=== PATIENT | female | born 1940 | race Caucasian/White ===

== ENCOUNTER → 2018-02-03 | Outpatient (CLI) | payer OTHER ==
[~2018-02-03] MED LIST: ACIDOPHILUS1 EAC4 PO; AMARYL1 MG PO; ASPIR 8181 MG PO; BISOPROLOL FUMAR5 MG PO; CARVEDILOL12.5 MG PO; CIPRO500 MG PO; FLAGYL500 M1 PO; FLAGYL500 MG PO; LISINOPRIL20 MG PO; LIVALO2 MG PO; LOPRESSOR25 PO; MELATONIN5 M1 PO; METFORMIN HCL500 MG PO; MIRALAX17 GM PO; MS CONTIN15 MG PO; NORVASC10 MG PO; ONDANSETRON HCL4 M2 PO; PHENERGAN 25 MG25 M1 PO; ZOFRAN 4 MG ORAL4 M1 DIS
== END ==
LOC: M.ULTRA 01-25 13:16
DX: K86.3 Pseudocyst of pancreas (principal); N85.9 Noninflammatory disorder of uterus, unspecified

== ENCOUNTER 2018-08-12 02:11 | Inpatient (IN) | payer OTHER ==
[~2018-08-12] VITALS: Ht 142.2 cm; Wt 65.8 kg
[2018-08-12] VITALS (7 sets, daily range): BP systolic 122–170; BP diastolic 57–70
[~2018-08-12 02:11] MED LIST changes: -ACIDOPHILUS1 EAC4 PO; -CIPRO500 MG PO; -FLAGYL500 M1 PO; -MELATONIN5 M1 PO
[2018-08-12 02:26] LABS: URINE BILIRUBIN NEGATIVE (Negative); URINE BLOOD TRACE (Negative); URINE CLARITY CLEAR; URINE COLOR YELLOW; URINE GLUCOSE-RANDOM NEGATIVE (Negative); URINE KETONES NEGATIVE (Negative); URINE LEUKOCYTES-REFLEX 3+ (Negative); URINE NITRITE-REFLEX NEGATIVE (Negative); URINE PROTEIN NEGATIVE (Negative); URINE SPECIFIC GRAVITY <= 1.005 (1.005-1.030); URINE UROBILINOGEN 0.2 E.U./dl (0.2-1.0)
[2018-08-12 02:28] LABS: ABSOLUTE BASOPHILS 0.1 thou/uL (0.0-0.2); ABSOLUTE EOSINOPHILS 0.2 thou/uL (0.0-0.7); ABSOLUTE LYMPHOCYTES 1.3 thou/uL (0.8-5.3); ABSOLUTE NEUTROPHILS 8.1 thou/uL (1.6-8.1); BASOPHILS 0.5 %; EOSINOPHILS 2.2 %; HEMATOCRIT 43.3 % (37.0-47.0); HEMOGLOBIN 14.6 gm/dL (12.0-15.0); LYMPHOCYTES 12.5 %; MCH 28.8 pg (26.0-34.0); MCHC 33.7 g/dL (28.0-37.0); MCV 85.6 fL (80.0-100.0); MONOCYTES 9.3 %; MPV 7.6 fl. (7.2-11.1); NUCLEATED RBCS 0 /100WBC; PLATELET COUNT* 308 thou/uL (150-400); POLYS 75.5 %; RBC 5.06 mil/uL (4.20-5.00); RDW-CV 13.6 % (10.5-14.5); WBC 10.7 thou/uL (4.0-11.0)
[2018-08-12 02:32] LABS: BACTERIA-REFLEX >30 Many /HPF (None Seen); CASTS None Seen /LPF (None Seen); CRYSTALS None Seen /LPF (None Seen); MUCUS 0-3 Light strn/LPF (None Seen); RENAL EPITHELIAL CELLS 0-3 Few /LPF (None Seen); SQUAMOUS 4-10 Moderate /LPF (0-3); TRANSITIONAL EPITHEL CELL 0-3 Few /LPF (None Seen); URINE RBC 3-10 Few /HPF (0-2); URINE WBC-REFLEX >25 Many /HPF (0-5); WBC CLUMPS Few (None Seen)
[2018-08-12 02:37] LABS: ANION GAP 9 mmol/L (7-16); BUN 19 mg/dL (7-18); CALCIUM 8.9 mg/dL (8.5-10.1); CHLORIDE 103 mmol/L (98-107); CO2 27 mmol/L (21-32); CREATININE 0.8 mg/dL (0.6-1.3); GLUCOSE 123 mg/dL (70-99); POTASSIUM 3.9 mmol/L (3.5-5.1); SODIUM 139 mmol/L (136-145)
[2018-08-12 02:40] LABS: PROTIME 9.8 Seconds (9.20-11.50)
[2018-08-12 02:57] LABS: ALBUMIN 3.9 g/dL (3.4-5.0); ALKALINE PHOSPHATASE 102 U/L (46-116); LIPASE 345 U/L (73-393); SGOT 13 U/L (15-37); SGPT 18 U/L (30-65); TOTAL BILIRUBIN 0.4 mg/dL (<0.1-1.0); TOTAL PROTEIN 7.7 g/dL (6.4-8.2)
[2018-08-12 02:58] LABS: NT-PRO BRAIN NAT PEPTIDE 102 pg/mL (<300); TROPONIN-I LEVEL <0.06 ng/mL (<0.06)
[2018-08-12] MEDS ORDERED: MIRALAX17 GM PO (06:20)
--- NOTE | 2018-08-12 16:32 | NUR ---
SW met with pt to complete initial assessment, introduce self, and SW role. Pt lives at home with her and has family support. Pt has a hx of HH and a hx of SNF at [facility]. Pt did not express any known dc needs at this time. SW to continue to follow to assist with safe dc planning.
--- NOTE | 2018-08-12 16:42 | EKG ---
[place] [address] ELECTROCARDIOGRAM REPORT Name: ISABELDEVENDRA Andre Room: [address] ADM IN M.R.#: [id number] Admission: 08/12/18 Attend Phys: Pedro Luis Tamayo MD Discharge: Date of : 42 Report #: [id number] THIS REPORT FOR: //name// [facility] ED Test Date: 2018-08-12 Test Time: 02:26:54 Pat Name: DEVENDRA HALL Department: Room: [facility] Gender: F Receptionist/Telephone Operator: AP : 1940 Requested By: Lynda Saab Order Number: [id number] MD: Nghia Patel Measurements Intervals Weed Rate: 68 P: 56 AL: 137 QRS: 28 QRSD: 91 T: 18 QT: 407 QTc: 433 Interpretive Statements Sinus rhythm Compared to ECG 05/31/2016 13:06:19 No significant changes Electronically Signed On 08-12-2018 16:42:18 CDT by Nghia Patel [email or web address] <ELECTRONICALLY SIGNED> By: Nghia Patel MD, [facility] 08/12/18 1642 5 5 Nghia Patel MD, FACC /EPI
--- NOTE | 2018-08-12 18:39 | NUR ---
PATIENT RESTING IN BED. PATIENT IS UP AD GARY IN ROOM. PATIENT DENIES ANY PAIN. PATIENT HAS BEEN AFEBRILE. IV FLUIDS AND ANTIBIOTICS INFUSING. PATIENT HAS GOOD APPETITE. PATIENT DENIES ANY NEEDS AT THIS TIME. CALL LIGHT WITHIN REACH. WILL CONTINUE TO MONITOR.
[2018-08-13 05:06] LABS: HEMATOCRIT 37.3 % (37.0-47.0); MCH 28.7 pg (26.0-34.0); MCHC 33.3 g/dL (28.0-37.0); MCV 86.3 fL (80.0-100.0); MPV 8.3 fl. (7.2-11.1); RBC 4.33 mil/uL (4.20-5.00); RDW-CV 13.9 % (10.5-14.5); WBC 7.7 thou/uL (4.0-11.0)
[2018-08-13 05:11] LABS: HEMOGLOBIN 12.4 gm/dL (12.0-15.0)
--- NOTE | 2018-08-13 05:17 | NUR ---
PT SLEPT MOST OF SHIFT. ASSESSMENT DOCUMENTED. MEDS GIVEN PER E-MAR. IV PATENT, FLUIDS INFUSING. NO REPORTS OF PAIN OR NAUSEA. WILL CONTINUE WITH PLAN OF CARE.
[2018-08-13 07:55] VITALS: BP 161/62
[2018-08-13] MEDS ORDERED: ACIDOPHILUS1 EAC4 PO (13:53)
[2018-08-13] MEDS ORDERED: MELATONIN5 M1 PO (13:55)
[2018-08-13] MEDS ORDERED: FLAGYL500 M1 PO (13:59)
[2018-08-13] MEDS ORDERED: CIPRO500 MG PO (13:59)
[2018-08-13 14:01] VITALS: BP 161/62
--- NOTE | 2018-08-13 15:42 | NUR ---
PATIENT A&OX4, ROOM AIR, IV LEFT AC FLUIDS INFUSSING. IV DISCONTINUED, CATHETER FULLY INTACT. UP AD GARY, STEADY GAIT. NO C/O PAIN/N/V. PATIENT DISCHARGED THIS AFTERNOON. REVIEWED PAPERWORK WITH PATIENT, WHILE SPOUSE AT BEDSIDE. VERBALIZES UNDERSTANDING, ALL QUESTIONS AND CONCERNS ANSWERED. PATIENT LEFT UNIT AT 1440 AMBULATORY WITH NURSING STAFF. ALL BELONGINGS TAKEN WITH PATIENT, NOTHING LEFT BEHIND. NO OTHER CONCERNS AT THIS ITME. APPROPRAITE AND COOPORATIVE WITH CARE.
== END 2018-08-13 14:40 | disposition home or self-care (01) | DRG 690 ==
LOC: M.ERS 02:11 → M.TBA-ER 05:07 → M.3W 05:07
PROVIDERS: Emergency Medicine; Internal Medicine; ADMIT Internal Medicine
DX: N39.0 Urinary tract infection, site not specified (principal); I25.10 Atherosclerotic heart disease of native coronary artery without angina pectoris; E11.9 Type 2 diabetes mellitus without complications; I10 Essential (primary) hypertension; Z98.891 History of uterine scar from previous surgery; Z90.49 Acquired absence of other specified parts of digestive tract; Z79.84 Long term (current) use of oral hypoglycemic drugs; Z79.82 Long term (current) use of aspirin; Z79.899 Other long term (current) drug therapy; Z88.2 Allergy status to sulfonamides; Z88.8 Allergy status to other drugs, medicaments and biological substances; Z82.49 Family history of ischemic heart disease and other diseases of the circulatory system; Z84.1 Family history of disorders of kidney and ureter; Z80.3 Family history of malignant neoplasm of breast; Z80.0 Family history of malignant neoplasm of digestive organs

== ENCOUNTER → 2019-03-08 | Outpatient (CLI) | payer OTHER ==
[~2019-03-08] MED LIST changes: +ACIDOPHILUS1 EAC4 PO; +CIPRO500 MG PO; +FLAGYL500 M1 PO; +MELATONIN5 M1 PO
== END ==
LOC: M.RAD 10:18
DX: M81.0 Age-related osteoporosis without current pathological fracture (principal); M85.851 Other specified disorders of bone density and structure, right thigh; M85.852 Other specified disorders of bone density and structure, left thigh; Z88.8 Allergy status to other drugs, medicaments and biological substances; Z88.2 Allergy status to sulfonamides; Z78.0 Asymptomatic menopausal state

== ENCOUNTER → 2019-04-29 | Outpatient (CLI) | payer OTHER | LOC: M.ULTRA 12:31 | DX: I65.23 Occlusion and stenosis of bilateral carotid arteries (principal) ==

== ENCOUNTER → 2019-06-29 | Outpatient (CLI) | payer OTHER ==
[2019-06-29 12:24] LABS: CREATININE 0.8 mg/dL (0.6-1.3)
== END ==
LOC: M.LAB 11:53 → M.CT 13:30
PROVIDERS: Family Medicine
DX: K44.9 Diaphragmatic hernia without obstruction or gangrene (principal); N32.3 Diverticulum of bladder; K86.2 Cyst of pancreas; R19.00 Intra-abdominal and pelvic swelling, mass and lump, unspecified site; Z88.2 Allergy status to sulfonamides; Z88.8 Allergy status to other drugs, medicaments and biological substances; Z90.49 Acquired absence of other specified parts of digestive tract

== ENCOUNTER → 2021-05-07 | Outpatient (CLI) | payer OTHER | LOC: M.ULTRA 10:18 | PROVIDERS: ATTEND Internal Medicine Cardiovascular Disease | DX: I65.23 Occlusion and stenosis of bilateral carotid arteries (principal) ==

== ENCOUNTER → 2021-05-30 | Outpatient (CLI) | payer OTHER ==
--- NOTE | 2021-05-30 16:46 | CARDNUC ---
[place] [address] CARDIAC NUCLEAR IMAGING REPORT Name: DEVENDRA HALL Room: [facility]#: [id number] Admission: 05/30/21 Attend Phys: Jonathan Bartlett, Discharge: Date of : 42 Date of Service: 05/30/21 1645 Report #: [id number] THIS REPORT FOR: cc: Katie Bradley Linda J. DO Liston, Michael J. MD [facility] ~ APPROVED REPORT Imaging Protocol: Stress Tc-99m/Rest Tc-99m 1 day Study performed: 05/30/2021 07:30:00 Indication: CAD , Chest pain Patient Location: Out-Patient Stress Tech: Cordelia Francisco Stress Nurse: Emelyn Brown RN Ht: 4 ft 10 in Wt: 142 lbs BSA: 1.57 m2 BMI: 29.67 Medical History Medical History: HTN, Hyperlipidemia Medications: amlodipine, carvedilol, zetia, lisinopril Allergies: cefuroxime, statins, sulfa, hydrocodone, metridazole Cardiac Risk Factors: Age, HTN, Hyperlipidemia Exercise History: Sedentary Meds Held (24 hrs): carvedilol Resting Data Rest SPECT myocardial perfusion imaging was performed in supine position 30 minutes following the intravenous injection of 9.8 mCi of Tc-99m Sestamibi. Time of rest injection: 08:00 The images were gated to evaluate regional wall motion and calculate left ventricular ejection fraction. Administration Route: IV Administration Site: Right AC Pharmacologic Stress Pharmacologic stress test was performed by injecting Regadenoson 0.4 mg IV push over 10-15 seconds immediately followed by the intravenous injection of 32.2 mCi of Tc-99m Sestamibi. Time of stress injection: 09:35 Administration Route: [place] [address] CARDIAC NUCLEAR IMAGING REPORT Name: DEVENDRA HALL Room: [facility]#: [id number] Admission: 05/30/21 Attend Phys: Jonathan Bartlett, Discharge: Date of : 42 Date of Service: 05/30/21 1645 Report #: [id number] Administration Site: Right Heart Rate at time of stress injection: 103 bpm. Gated Stress SPECT was performed 40 minutes after stress injection. The images were gated to evaluate regional wall motion and calculate left ventricular ejection fraction. Prone imaging was performed. Stress Test Details Stress Test: Pharmacologic stress testing performed using 0.4 mg of regadenoson per 5 mL given IV over 10 seconds. Reason for pharmacologic stress test: physical limitation. HR Max Heart Rate (APMHR): 141 bpm Resting HR: 65 bpm Target HR (85% APMHR): 119 bpm Max HR Achieved: 103 bpm % of APMHR: 73 Recovery HR: 81 bpm BP Resting BP: 151/75 mmHg Max BP: 149/63 mmHg Recovery BP: 152/65 mmHg ECG Resting ECG: Sinus Rhythm Stress ECG: Sinus Tachycardia ST Change: None Arrhythmia: None Recovery ECG: Sinus Rhythm Recovery ST Change: None Recovery Arrhythmia: None Clinical Reason for Termination: Completed protocol The patient tolerated Lexiscan infusion without significant cardiac symptoms. Nurse Comments pt gait too unsteady for treadmill Stress ECG Conclusion The baseline twelve-lead EKG shows sinus rhythm without significant ST segment abnormality. EKGs obtained during and post Lexiscan infusion show sinus rhythm and sinus tachycardia with no significant ST segment changes when compared to baseline. There were no stress[place] [address] CARDIAC NUCLEAR IMAGING REPORT Name: DEVENDRA HALL Room: [facility]#: [id number] Admission: 05/30/21 Attend Phys: Jonathan Bartlett, Discharge: Date of : 42 Date of Service: 05/30/21 1645 Report #: [id number] Study Quality Study: Good Artifact: No artifact Study Data At rest, the left ventricular ejection fraction was 69%.. Post stress, the left ventricular ejection was 82%.. TID = 1.07. Perfusion Perfusion images show no defect to suggest infarct or ischemia. Wall Motion Normal left ventricular wall motion. Nuclear Conclusion ECG Findings: negative for ischemia Clinical Findings: negative for ischemia Nuclear Findings: negative for ischemia Exercise Capacity: not assessed Left Ventricular Function: normal Risk Study: low Myocardial perfusion images show no defect to suggest infarct or ischemia. Left ventricular systolic function appears normal on gated studies. This is a low risk study. <Conclusion> The baseline twelve-lead EKG shows sinus rhythm without significant ST segment abnormality. EKGs obtained during and post Lexiscan infusion show sinus rhythm and sinus tachycardia with no significant ST segment changes when compared to baseline. There were no stress-induced arrhythmias. <ELECTRONICALLY SIGNED> By: Jonathan Bartlett MD, [facility] 05/30/21 1645 1645 1645 Jonathan Bartlett MD, FACC /INF
== END ==
LOC: M.NUC 05-14 16:03
PROVIDERS: ATTEND Internal Medicine Cardiovascular Disease
DX: R00.0 Tachycardia, unspecified (principal); I25.10 Atherosclerotic heart disease of native coronary artery without angina pectoris; E78.2 Mixed hyperlipidemia; E11.9 Type 2 diabetes mellitus without complications; I10 Essential (primary) hypertension; Z88.2 Allergy status to sulfonamides; Z88.8 Allergy status to other drugs, medicaments and biological substances